=== PATIENT | female | born 1970 | race African-American/Black ===

== ENCOUNTER 2020-01-10 06:00 | Inpatient (IN) ==
[2019-12-27 11:51] LABS: Basophils # 0.1 10*3/uL (0.0-0.2); Basophils % 0.5 % (0.0-0.8); Eosinophils # 0.2 10*3/uL (0.0-0.87); Eosinophils % 2.2 % (0.00-10.9); Hematocrit 44.2 VOL% (35.7-47.0); Hemoglobin 13.8 GM/DL (12.0-16.0); Immature Granulocytes % 0.2 %; Immature Granulocytes Absolute 0.02 #; Lymphocytes # 3.1 10*3/uL (1.4-4.0); Lymphocytes % 30.2 % (21.3-54.2); Mean Corpuscular HGB Conc 31.2 GM/DL (32-36); Mean Corpuscular Volume 98.4 FL (87-102); Mean Platelet Volume 10.9 FL (9.6-12.0); Monocytes % 5.2 % (1.7-12.7); Neutrophils % 61.7 % (38.7-73.9); Platelet Count 252 T/CUMM (130-400); Red Blood Count 4.49 MC/CUMM (3.8-5.5); Red Cell Distribution Width 11.9 % (9.3-17.3); White Blood Count 10.1 T/CUMM (4-12)
[2019-12-27 11:59] LABS: INR 0.9; PT Patient Result 10.3 SECS (9.6-12.2)
[2019-12-27 12:02] LABS: Apearance,Urine CLEAR (Clear); Bilirubin,Urine Negative (Negative); Blood, Urine Negative (Negative); Glucose,Urine (UA) Negative (Negative); Ketones,Urine Negative (Negative); Mucus,Urine Occasional /LPF (Occasional); Nitrite,Urine Negative (Negative); Protein,Urine Negative; RBC,Urine <1 /HPF (0-4); Squamous Epithelial Cell,Urine Occasional /HPF (0-10); Urine Color Yellow (Yellow); Urine Specific Gravity 1.015 (1.001-1.035); Urine Urobilinogen < 2.0 EU/DL (0.2-1.0); WBC,Urine <1 /HPF (0-6)
[2019-12-27 12:27] LABS: Folate 8.8 NG/ML (5.4-24.0)
[2020-01-06 13:01] LABS: % Iron Saturation 14.9 % (18-50); Albumin 4.3 G/DL (3.4-5.0); Bilirubin,Total 0.6 MG/DL (0.2-1.0); Calcium 10.1 MG/DL (8.5-10.1); Osmolality,Calculated 269.1 MOS/KG (273-304); Risk Ratio 4.18; Thyroid Stimulating Hormone 0.537 uIU/ml (0.358-3.74); Total Protein 8.4 G/DL (6.4-8.3); VLDL CHOLESTEROL 13.4 MG/DL
[2020-01-06 13:09] LABS: % Iron Saturation 15.1 % (18-50); Free T4 (Free Thyroxine) 1.04 NG/DL (0.76-1.46)
[~2020-01-10 06:00] MED LIST: cefOXitin 2,000 MG in SYRINGE 1 EACH IV ONE
[2020-01-10] MEDS ORDERED: SCOPOLAMINE 1.5 MG PATCH TRANSDERM ONE ×2 (06:01→06:55)
[2020-01-10] MEDS ORDERED: ACETAMINOPHEN 1,000 MG/100 ML VIAL IV ONE (06:01)
[2020-01-10] MEDS ORDERED: PANTOPRAZOLE 40 MG VIAL IV ONE ×2 (06:01→06:56)
[2020-01-10] MEDS ORDERED: HEPARIN 5,000 UNIT/1 ML VIAL ONE (06:01)
[2020-01-10] MEDS ORDERED: HYOSCYAMINE 0.125 MG TABLET ONE (06:01)
[2020-01-10] MEDS ORDERED: BUPIVACAINE LIPOSOMAL 20 ML/266 MG VIAL ONE (06:25)
[2020-01-10] MEDS: LACTATED RINGERS 1,000 ML IV SCH ×4 (06:25→18:16)
[2020-01-10] MEDS ORDERED: TISSUE ADHESIVE 1 EACH APPLICATOR TOP ONE (06:25)
[2020-01-10] MEDS ORDERED: LIDOCAINE 1%/EPI INJ 20 ML VIAL ONE (06:25)
[2020-01-10] MEDS ORDERED: BUPIVACAINE MPF 0.25% 30 ML VIAL ONE (06:25)
[2020-01-10] MEDS ORDERED: HYOSCYAMINE 0.125 MG TABLET PO ONE (06:56)
[2020-01-10] MEDS ORDERED: HEPARIN 5,000 UNIT/1 ML VIAL SUBCUT ONE (06:56)
[2020-01-10] MEDS ORDERED: SEVOFLURANE 1 UNIT/15 MINUTE INH ONE (09:16)
[2020-01-10] MEDS ORDERED: propofoL 200 MG/20 ML VIAL IV ONE (09:16)
[2020-01-10] MEDS ORDERED: MIDAZOLAM 2 MG/2 ML VIAL ONE (09:16)
[2020-01-10] MEDS ORDERED: LIDOCAINE 2% 5 ML VIAL ONE (09:16)
[2020-01-10] MEDS ORDERED: fentaNYL 100 MCG/2 ML VIAL ONE (09:16)
[2020-01-10] MEDS ORDERED: DEXAMETHASONE 4 MG/1 ML VIAL ONE (09:17)
[2020-01-10] MEDS ORDERED: GLYCOPYRROLATE 0.4 MG/2 ML VIAL ONE (09:17)
[2020-01-10] MEDS ORDERED: ePHEDrine 50 MG/ML AMP ONE (09:17)
[2020-01-10] MEDS ORDERED: ONDANSETRON 4 MG/2 ML VIAL ONE ×2 (09:17→09:30)
[2020-01-10] MEDS ORDERED: KETOROLAC 30 MG/1 ML VIAL ONE (09:18)
[2020-01-10] MEDS ORDERED: ROCURONIUM 100 MG/10 ML VIAL IV ONE (09:18)
[2020-01-10] MEDS ORDERED: NEOSTIGMINE 10 MG/10 ML VIAL ONE (09:18)
[2020-01-10] MEDS ORDERED: PHENYLEPHRINE 1 MG/10 ML SYRINGE IV ONE (09:18)
[2020-01-10] MEDS ORDERED: LACTATED RINGERS 1,000 ML IV ONE (09:18)
[2020-01-10] MEDS: HYDROmorphone 2 MG/1 ML VIAL IV PRN ×2 (09:30→09:40)
[2020-01-10] MEDS ORDERED: HYDROmorphone 2 MG/1 ML VIAL ONE (09:30)
[2020-01-10] MEDS ORDERED: ONDANSETRON 4 MG/2 ML VIAL IV PRN (09:35)
[2020-01-10] MEDS ORDERED: hydrALAZINE 20 MG/1 ML VIAL IV PRN (09:57)
[2020-01-10] MEDS ORDERED: MORPHINE 4 MG/1 ML VIAL IV PRN (09:57)
[2020-01-10] MEDS: ceFAZolin 2,000 MG in PREMIX 1 EACH IV SCH (15:17)
[2020-01-10] MEDS: ONDANSETRON 4 MG/2 ML VIAL IV PRN ×2 (15:40→21:32)
[2020-01-10] MEDS: PROMETHAZINE 25 MG/1 ML VIAL IM PRN (17:09)
[2020-01-11] MEDS: LACTATED RINGERS 1,000 ML IV SCH ×3 (00:14→12:41)
[2020-01-11] MEDS: ceFAZolin 2,000 MG in PREMIX 1 EACH IV SCH (00:14)
[2020-01-11] MEDS: PROMETHAZINE 25 MG/1 ML VIAL IM PRN (03:09)
[2020-01-11] MEDS: HYDROcod/ACETAMIN 7.5-325 MG/15 ML UDCUP PO PRN ×3 (06:15→22:03)
[2020-01-11 06:24] LABS: Basophils % 0.1 % (0.0-0.8); Hematocrit 39.4 VOL% (35.7-47.0); Hemoglobin 12.8 GM/DL (12.0-16.0); Immature Granulocytes % 0.4 %; Immature Granulocytes Absolute 0.07 #; Lymphocytes # 2.1 10*3/uL (1.4-4.0); Lymphocytes % 11.3 % (21.3-54.2); Mean Corpuscular HGB Conc 32.5 GM/DL (32-36); Mean Corpuscular Volume 96.1 FL (87-102); Monocytes % 8.8 % (1.7-12.7); Neutrophils % 79.4 % (38.7-73.9); Platelet Count 240 T/CUMM (130-400); Red Cell Distribution Width 11.8 % (9.3-17.3); White Blood Count 18.1 T/CUMM (4-12)
[2020-01-11 06:41] LABS: Calcium 8.8 MG/DL (8.5-10.1); Osmolality,Calculated 271.8 MOS/KG (273-304)
[2020-01-11] MEDS: SIMETHICONE CHEW 80 MG TABLET PO SCH ×3 (09:41→21:58)
[2020-01-11] MEDS: PANTOPRAZOLE 40 MG VIAL IV SCH (09:41)
[2020-01-11] MEDS: CITALOPRAM 40 MG TABLET PO SCH (14:26)
[2020-01-11] MEDS: buPROPion 75 MG TABLET PO SCH ×2 (14:26→21:58)
[2020-01-12] MEDS: LACTATED RINGERS 1,000 ML IV SCH ×3 (01:34→10:30)
[2020-01-12 05:31] LABS: Basophils # 0.1 10*3/uL (0.0-0.2); Basophils % 0.3 % (0.0-0.8); Eosinophils % 0.2 % (0.00-10.9); Hematocrit 37.1 VOL% (35.7-47.0); Hemoglobin 11.8 GM/DL (12.0-16.0); Immature Granulocytes % 0.3 %; Immature Granulocytes Absolute 0.04 #; Lymphocytes # 4.2 10*3/uL (1.4-4.0); Lymphocytes % 27.2 % (21.3-54.2); Mean Corpuscular HGB Conc 31.8 GM/DL (32-36); Mean Corpuscular Volume 98.4 FL (87-102); Mean Platelet Volume 11.5 FL (9.6-12.0); Monocytes % 8.4 % (1.7-12.7); Neutrophils % 63.6 % (38.7-73.9); Platelet Count 207 T/CUMM (130-400); Red Blood Count 3.77 MC/CUMM (3.8-5.5); Red Cell Distribution Width 11.8 % (9.3-17.3); White Blood Count 15.3 T/CUMM (4-12)
[2020-01-12] MEDS: HYDROcod/ACETAMIN 7.5-325 MG/15 ML UDCUP PO PRN (08:23)
[2020-01-12] MEDS: SIMETHICONE CHEW 80 MG TABLET PO SCH (08:24)
[2020-01-12] MEDS: buPROPion 75 MG TABLET PO SCH (08:24)
[2020-01-12] MEDS: CITALOPRAM 40 MG TABLET PO SCH (08:24)
[2020-01-12] MEDS: PANTOPRAZOLE 40 MG VIAL IV SCH (08:24)
[2020-01-12] MEDS ORDERED: ENOXAPARIN 40 MG/0.4 ML SYRINGE SUBCUT SCH (09:00)
[2020-01-12 13:08] VITALS: BP 120/62
== END 2020-01-12 13:13 | disposition home or self-care (01) | DRG 621 ==
LOC: N.SDS 06:00 → N.SDSINP 06:06 → EDSTATUS 07:30 → N.3E 10:07
PROVIDERS: ADMIT Surgery; ATTEND Surgery